=== PATIENT | female | born 1965 | race American Indian/Alaskan Native ===

== ENCOUNTER 2020-04-14 02:32 | Observation (INO) ==
[2020-04-14] MEDS ORDERED: IBUPROFEN 600 MG TABLET PO PRN ×2 (02:59→15:56)
[2020-04-14] MEDS ORDERED: ONDANSETRON 4 MG/2 ML VIAL IV PRN ×3 (02:59→15:56)
[2020-04-14] MEDS ORDERED: ACETAMINOPHEN 325 MG TABLET PO PRN ×2 (02:59→15:56)
[2020-04-14] MEDS ORDERED: morphine 15 MG TABLET PO PRN (02:59)
--- NOTE | 2020-04-14 03:06 | Emergency Department Note ---
Abdominal Pain HPI General Chief Complaint: Abdominal Pain Stated Complaint: right lower abd. pain known appy Time Seen by Provider: 04/14/20 02:59 Source: EMS Mode of arrival: EMS History of Present Illness HPI Narrative: Narrative: Patient presented to the emergency department as a transfer from [facility] emergency department for appendicitis. They already spoke with Dr. Diaz the physician who wanted to be an ER to ER transfer but excepted the patient. Patient said that she started having right lower quadrant abdominal pain she has no nausea no vomiting. They did a CAT scan which did show a appendicitis. Patient already been started on Rocephin and Flagyl which were given prior to arrival. Patient has been n.p.o. since late last night. She is comfortable at this time just has mild discomfort 4 out of 10 pain in the right lower quadrant otherwise no other pain no nausea or vomiting. Related Data Home Medications Medication Instructions Recorded Confirmed aspirin 81 mg PO DAILY 04/14/20 04/14/20 irmfuhdxemep-ioo-[id number]-FA-vit K 1 tab PO DAILY 04/14/20 04/14/20 [Adults Multivitamin] Allergies Allergy/AdvReac Type Severity Reaction Status Date / Time codeine AdvReac Intermediate Itching Verified 04/14/20 02:42 Review of Systems ROS ROS Narrative: Narrative: All systems ED: reviewed and negative except as stated. [facility] Narrative Patient History Narrative: Narrative: Medical/Surgical/Family History All Active Problems (Updated 04/14/20 @ 03:06 by Guanaco Wyatt DO) Acute appendicitis (Acute) Social History Smoking Status: Never smoker Exam Narrative Narrative: Narrative: Vital signs noted General: Awake. Alert. No distress. Skin: Warm. Dry. No rash. HEENT: NCAT. PERRL. EOMI. No conjunctivitis. No nystagmus. No pharyngitis. Membranes moist. No otitis. No rhinitis. Neck: No PTP. Good ROM. No meningeal signs. No stridor. No thyromegaly. No JVD. Cardiovascular: RRR. No murmur. No rubs. No gallops. Respiratory: No respiratory distress. Breath sounds equal. Lungs clear. Gastrointestinal: Abdomen soft. Mild tenderness to right lower quadrant. No distention. Normal bowel sounds. No palpable organomegaly or masses. Back: No deformity. No CVAT. Musculoskeletal: No tenderness. No swelling. No erythema. No edema. Good peripheral pulses x 4 Lymphatic: No palpable adenopathy. Neurological: No focal neurological deficits observed. Course Vital Signs Vital signs: Vital Signs Temperature 100.5 F H 04/14/20 02:33 Pulse Rate 96 H 04/14/20 02:33 Respiratory Rate 17 04/14/20 02:33 Pulse Oximetry (%) 96 04/14/20 02:33 Temperature 100.5 F H 04/14/20 02:33 Pulse Rate 96 H 04/14/20 02:33 Respiratory Rate 17 04/14/20 02:33 Pulse Oximetry (%) 96 04/14/20 02:33 MDM MDM Narrative Medical decision making narrative: Narrative: Patient presented with appendicitis. I did review the CAT scan and the imaging patient already got images. As well as already received antibiotics. I did start IV fluids on her just for rehydration. She said her mouth feels dry she is n.p.o. status. I did place orders to get admitted to [facility]. I did speak with Dr. Diaz and he agrees with this plan he states he no admit to his service and will see the patient in the morning. Patient is stable at this time she is okay. There is no signs of an acute abdomen I think patient is stable and able to get seen and have surgery in the morning. She continues to be n.p.o. status Discharge Plan Patient/Caregiver Discharge Instructions Pt seen by BOND CLERK/PA only: No Clinical Impression: Acute appendicitis Patient Disposition: Xfer As Outpt/Obs ([facility]) Condition: Good Prescriptions: No Action aspirin 81 mg Tablet,Chewable 81 mg PO DAILY RF: 0 Adults Multivitamin 18 mg iron-400 mcg-25 mcg Tablet 1 tab PO DAILY RF: 0
[2020-04-14] MEDS: 0.9 % SODIUM CHLORIDE 1,000 ML IV SCH ×3 (04:38→16:00)
[2020-04-14] MEDS: 0.9 % SODIUM CHLORIDE 10 ML SYRINGE IV SCH ×3 (04:39→21:46)
[2020-04-14] MEDS ORDERED: DOCUSATE SODIUM 100 MG CAPSULE PO SCH (09:00)
[2020-04-14] MEDS ORDERED: ACETAMINOPHEN 1,000 MG/100 ML BOTTLE IV PRN ×2 (12:52→15:56)
[2020-04-14] MEDS ORDERED: SODIUM CHLORIDE NASAL 1 SPRAY BOTTLE NAS PRN ×2 (13:03→15:56)
--- NOTE | 2020-04-14 13:18 | General Surg History&Physical ---
HPI History of Present Illness Patient information: Note initiated : 04/14/20 at 1:02 pm Service Date, if different from initiated Date: [] Patient: Sofia Nolan a 54 y/o F admitted on 04/14/20 for right lower abd. pain known appy. Chief Complaint: [] Chief complaint: acute abdominal pain History of present illness: Ms. Nolan is a 54 year old F admitted after transfer from [facility] for acute appendicitis. She states that she developed a mild pain in her lower abdomen and right lower quadrant about 2 PM yesterday. It became progressively severe and she had nausea but no vomiting. The pain increases in her pubis. She did not have any urinary symptoms. She was finally seen in the emergency room at [facility] about 10:30 PM. She was evaluated and found to have acute appendicitis with enlarged appendix with periappendiceal tissue edema low-grade fever and leukocytosis. She was transferred here reportedly because [facility] did not have a bed for admission. The patient states that she started having symptoms of nasopharyngeal congestion loss of taste and loss of smell around 18 March. She did not have any fever or chills. These symptoms increased and she was finally tested for COVID 19 on 27 March and the test was positive. She states that she has continued to have headache, sinus congestion, increasing difficulty breathing even up until yesterday. She self quarantine for a week and then was told that she could return to work with a mass. She was never tested. She told the staff at [facility] last evening that she had beeN COVID positive.she was evaluated her for MRSA but did not have a repeat COVID test. When tested here her rapid Covid remains positive. Constitutional Constitutional: Present chills, fever(s), headache(s), night sweats and weakness EENT Eyes: Absent change in vision Ears: Absent decreased hearing, ear pain and tinnitus Nose, mouth and throat: Present dizziness, facial pain, headache(s), nasal discharge, nasal obstruction, sinus pain and sore throat Cardiovascular Cardiovascular: Present dyspnea on exertion; Absent chest pain and chest pain with activity Respiratory Respiratory: Present dyspnea on exertion and chest congestion; Absent cough Gastrointestinal Gastrointestinal: Present abdominal pain, bloating and nausea; Absent vomiting Genitourinary Genitourinary: Absent difficulty voiding, dysuria, urinary frequency and urinary urgency Musculoskeletal Musculoskeletal: Absent arthralgias, back pain and muscle weakness Neurological Neurological: Present headache(s); Absent abnormal gait, abnormal hearing, confusion and dizziness Psychiatric Psychiatric: Absent anxiety, behavioral changes and depression Endocrine Endocrine: Absent fatigue Hematologic/Lymphatic Hematologic/Lymphatic: Absent easy bleeding, easy bruising and lymphadenopathy Allergic/Immunologic Allergic/Immunologic: Absent tongue swelling, throat swelling, uticaria, whe ezing and lip swelling PFSH PFSH All Active Problems H/O closure of congenital ventricular 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 transcatheter technique (Acute) COVID-19 (Acute) Acute appendicitis (Acute) Social History smoking status: Never smoker MEDS/ALLERGIES Home Medications and Allergies Home Medications Medication Instructions Recorded Confirmed Type aspirin 81 mg PO DAILY 04/14/20 04/14/20 History lavufzdzleiq-mqy-ypgj-FA-vit K 1 tab PO DAILY 04/14/20 04/14/20 History [Adults Multivitamin] Allergies Allergy/AdvReac Type Severity Reaction Status Date / Time codeine AdvReac Intermediate Itching Verified 04/14/20 02:42 Physical Examination Vital Signs Vital signs: Temp Pulse Resp BP Pulse Ox 98.0 F 68 16 101/51 96 04/14/20 07:32 04/14/20 07:32 04/14/20 07:32 04/14/20 07:32 04/14/20 07:32 General physical appearance General physical exam: well developed, well nourished, no distress and moderate pain Eyes Eye exam: PERRL ENT ENT exam: normal mucosa, no hearing loss and other (nasal congestion) Head Head exam IM: Present atraumatic, normal inspection and normocephalic Neck Neck exam: no bruits, trachea midline, no lymphadenopathy and no venous distension Cardiovascular Cardiovascular exam IM: Present normal rate and rhythm, RRR, +S1 and +S2; Absent JVD Respiratory Respiratory exam: normal expansion, normal respiratory effort, clear to auscultation and other Abdomen Abdomen: Present soft, non tender, tender, bowel sounds and guarding (right lower quadrant) Integumentary Integumentary: Present no rash, no growths, no abnormal pigmentation and other Neurologic Neurologic: Present normal coordination and normal sensation Musculoskeletal Musculoskeletal: Present normal gait and normal posture Psychiatric Psychiatric: Present oriented to time, oriented to person, oriented to place, speech is normal and memory intact Results Labs Labs: Abnormal lab results 04/14/20 Range/Units 05:10 SARS-CoV-2 (PCR) Positive A (Negative) All other labs normal. A/P Assessment and plan (1) Acute appendicitis: Status: Acute Qualifiers: Acute appendicitis type: unspecified acute appendicitis type Qualified Code(s): K35.80 - Unspecified acute appendicitis (2) COVID-19: Status: Acute (3) H/O closure of congenital ventricular 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 transcatheter technique: Status: Acute Narrative A/P Narrative: patient is counseled for laparoscopic appendectomy later today Time Spent With Patient Time: Total time spent is greater than 50% in coordination of care (as documented) at patient's floor/unit and/or counseling patient:
[2020-04-14] MEDS ORDERED: SCOPOLAMINE 1 PATCH PATCH TOPICAL SCH (13:45)
[2020-04-14] MEDS: LEVOFLOXACIN 750 MG/150 ML BAG IV SCH ×3 (14:00→16:12)
[2020-04-14] MEDS ORDERED: SUGAMMADEX SODIUM 200 MG/2 ML VIAL IV ONE (14:10)
[2020-04-14] MEDS ORDERED: PROPOFOL 200 MG/20 ML VIAL IV ONE (14:10)
[2020-04-14] MEDS ORDERED: ROCURONIUM 10 MG/ML ML IV ONE (14:10)
[2020-04-14] MEDS ORDERED: fentaNYL 250 MCG/5 ML VIAL IV ONE (14:10)
[2020-04-14] MEDS ORDERED: DEXAMETHASONE 10 MG/ML VIAL ONE (14:10)
[2020-04-14] MEDS ORDERED: ePHEDrine 50 MG/ML AMPUL IV ONE (14:10)
[2020-04-14] MEDS ORDERED: MIDAZOLAM 5 MG/5 ML VIAL ONE (14:10)
[2020-04-14] MEDS ORDERED: LIDOCAINE HCL/PF 100 MG/5 ML SYRINGE IV ONE (14:10)
[2020-04-14] MEDS ORDERED: ONDANSETRON 4 MG/2 ML VIAL ONE (14:10)
[2020-04-14] MEDS ORDERED: NALOXONE HCL 0.4 MG/ML VIAL IV PRN (14:45)
[2020-04-14] MEDS ORDERED: MEPERIDINE 25 MG/ML SYRINGE IV PRN (14:45)
[2020-04-14] MEDS ORDERED: fentaNYL 100 MCG/2 ML VIAL IV PRN (14:45)
[2020-04-14] MEDS ORDERED: diphenhydrAMINE 50 MG/ML VIAL IV PRN (14:45)
[2020-04-14] MEDS ORDERED: LACTATED RINGERS 1,000 ML IV SCH (14:45)
[2020-04-14] MEDS ORDERED: KETOROLAC 30 MG/ML VIAL IV PRN (14:45)
[2020-04-14] MEDS ORDERED: IPRATROPIUM/ALBUTEROL 3 ML AMPUL.NEB NEB PRN (14:45)
[2020-04-14] MEDS ORDERED: LACTATED RINGERS 250 ML IV PRN (14:45)
[2020-04-14] MEDS ORDERED: PROMETHAZINE 25 MG/ML VIAL IV PRN (14:45)
[2020-04-14] MEDS ORDERED: FLUMAZENIL 0.1 MG/ML ML IV PRN (14:45)
--- NOTE | 2020-04-14 14:52 | Brief Operative Note ---
Brief Operative Note Date of procedure: 04/14/20 Pre-op diagnosis: acute appendicitis Post-op diagnosis: other Grafts/Implants: No Anesthesia: GETA Findings: acute suppurative appendicitis Complications: none Surgeon: Rolando Diaz Estimated blood loss (cc): 5 Specimens Removed/Pathology: other (appendix) Condition: stable Disposition: PACU
[2020-04-14] MEDS ORDERED: HYDROmorphone 1 MG/ML SYRINGE IV PRN (15:56)
[2020-04-14] MEDS ORDERED: LEVOFLOXACIN 750 MG/150 ML BAG IV ONE (16:00)
[2020-04-14] MEDS: DOCUSATE SODIUM 100 MG CAPSULE PO SCH (20:19)
[2020-04-14] MEDS ORDERED: SENNOSIDES 1 TABLET PO SCH ×2 (21:00)
[2020-04-15] MEDS: 0.9 % SODIUM CHLORIDE 1,000 ML IV SCH ×2 (00:12→08:57)
[2020-04-15] MEDS: 0.9 % SODIUM CHLORIDE 10 ML SYRINGE IV SCH ×2 (05:24→12:58)
[2020-04-15 06:43] LABS: Basophils # (Auto) 0.01 K/mcL (0.00-0.20); Basophils % (Auto) 0.1 % (0.0-2.0); Eosinophils # (Auto) 0 K/mcL (0.00-0.70); Eosinophils % (Auto) 0 % (0.0-7.0); Hemoglobin 10.1 g/dL (12.0-15.0); Lymphocytes # (Auto) 0.87 K/mcL (1.50-4.80); Mean Cell Volume 92.8 fL (80.0-100.0); Mean Corpuscular HGB Conc 31.6 g/dL (31.0-36.0); Mean Platelet Volume 10.2 fL (7.4-10.4); Monocytes # (Auto) 0.38 K/mcL (0.10-0.90); Monocytes % (Auto) 3.5 % (1.0-12.0); Neutrophils % (Auto) 88.4 % (38.0-78.0); Platelet Count 205 K/mcL (140-440); RBC 3.45 M/mcL (4.00-5.20); Red Cell Distribution Width 13.4 % (11.5-14.5); WBC 10.9 K/mcL (4.5-11.0)
[2020-04-15] MEDS: DOCUSATE SODIUM 100 MG CAPSULE PO SCH (08:57)
[2020-04-15] MEDS: LEVOFLOXACIN 750 MG/150 ML BAG IV SCH (09:05)
--- NOTE | 2020-04-15 13:09 | Discharge Summary ---
Discharge Provider Provider Patient information: Note initiated : 04/15/20 at 1:03 pm Service Date, if different from initiated Date: [] Patient: Sofia Nolan 54 y/o F admitted on 04/14/20 for right lower abd. pain known appy. Chief Complaint: [] Date of admission: 04/14/20 04:23 Discharge date: 04/15/20 Admitting clinician: Rolando Diaz Consults: 04/14/20 04:38 Consult to Physician [CONS] Routine Comment: Consulting Provider: Rolando Diaz Reason For Exam: Physician to Consult Attending physician on discharge: Rolando Diaz Discharging clinician: Rolando Diaz COURSE Hospital Course Hospital course: 54-year-old female with history of acute abdominal pain. She was transferred from [facility] with acute appendicitis. She was monitored and taken to or on yesterday for an uneventful laparoscopic appendectomy. She has done well except for mild incisional pain and is ready for discharge. Patient is COVID positive. If necessary precautions were taken. She has done well except for complaint of nasal pharyngeal congestion. She she had headache but that was treated with Fioricet and is felt to be related to caffeine withdrawal. Discharge diagnosis: acute appendicitis Secondary discharge diagnosis: COVID 19 positive status Reason for admission: acute appendicitis Procedures: laparoscopic appendectomy Pertinent studies/significant findings: none Complications: none Time Spent with Patient Time attestation: Total time spent providing and/or coordinating discharge services: Physical Examination Vital Signs Vital signs: Temp Pulse Resp BP Pulse Ox 98.5 F 62 18 102/53 99 04/15/20 12:00 04/15/20 12:00 04/15/20 12:00 04/15/20 12:00 04/15/20 12:00 General physical appearance General physical exam: well developed, well nourished, no distress and moderate pain Eyes Eye exam: PERRL and normal ocular movement ENT ENT exam: other (nasopharyngeal congestion) Head Head exam IM: Present atraumatic, normal inspection and normocephalic Neck Neck exam: no masses, no bruits, trachea midline and no lymphadenopathy Cardiovascular Cardiovascular exam IM: Present normal rate and rhythm, RRR, +S1 and +S2; Absent JVD Respiratory Respiratory exam: normal expansion, normal respiratory effort and clear to auscultation Abdomen Abdomen: Present soft, tender (mild tenderness around the port sites), bowel sounds (normal bowel sounds) and surgical scars (all port sites were unremarkable) Integumentary Integumentary: Present no rash, no growths and no abnormal pigmentation Neurologic Neurologic: Present normal coordination and normal sensation Musculoskeletal Musculoskeletal: Present normal gait and normal posture Psychiatric Psychiatric: Present oriented to time, oriented to person, oriented to place, speech is normal and memory intact Discharge Plan Patient/Caregiver Discharge Instructions Activity: increase activity as tolerated and resume usual activities as tolerated Diet: Regular Diet Prescriptions: New oxycodone 5 mg tablet 5 mg PO Q6H PRN (Reason: pain) Qty: 30 RF: 0 No Action aspirin 81 mg Tablet,Chewable 81 mg PO DAILY RF: 0 Adults Multivitamin 18 mg iron-400 mcg-25 mcg Tablet 1 tab PO DAILY RF: 0 Follow Up Plan Follow up with: Rolando Diaz MD [Physician] - Patient Disposition: Home, Self-Care Health Concerns: Prognosis: Good Rehab Potential: Good I certify that the patient requires SNF services: No Overall status at discharge: patient is progressing back to baseline Discharge Orders: Discharge Order (Routine); Ordered 04/15/20 Ordered By: Rolando Diaz Pending Pending Pending: Resuscitation Status Full Code Diet Full Liquid Diet Start Sun Apr 14 1556 Docusate Sodium (Colace) 100 mg PO BID [facility] Last Admin: 04/15/20 08:57 Dose: 100 mg Documented by: Admin: 04/14/20 20:19 Dose: 100 mg Documented by: Cosigned by: JHONY Hydromorphone HCl (Dilaudid) 1 mg IV Q2HP PRN; Protocol PRN Reason: Per Pain Protocol Last Admin: 04/14/20 18:11 Dose: 1 mg Documented by: JAYA Sodium Chloride (Sodium Chloride 0.9%) 1,000 mls @ 125 mls/hr IV .Q8H [facility] Last Admin: 04/15/20 08:57 Dose: 125 mls/hr Documented by: Infusion: 04/15/20 08:12 Dose: 125 mls/hr Documented by: Admin: 04/15/20 00:12 Dose: 125 mls/hr Documented by: Cosigned by: JHONY Infusion: 04/15/20 00:00 Dose: 125 mls/hr Documented by: Cosigned by: JHONY Admin: 04/14/20 16:00 Dose: 125 mls/hr Documented by: JAYA Acetaminophen (Ofirmev) 1,000 mg in 100 mls @ 200 mls/hr IV Q6HP PRN; Protocol PRN Reason: pain Last Infusion: 04/15/20 05:59 Dose: 200 mls/hr Documented by: Cosigned by: JHONY Admin: 04/15/20 05:12 Dose: 200 mls/hr Documented by: Cosigned by: JHONY Levofloxacin (Levaquin) 750 mg in 150 mls @ 100 mls/hr IV DAILY BIJAN; Protocol Last Infusion: 04/15/20 10:35 Dose: 0 mls/hr Documented by: Admin: 04/15/20 09:05 Dose: 100 mls/hr Documented by: Infusion: 04/14/20 15:30 Dose: 100 mls/hr Documented by: Admin: 04/14/20 14:00 Dose: 100 mls/hr Documented by: MALLORY Ondansetron HCl (Zofran) 4 mg IV Q6HP PRN PRN Reason: Nausea And Vomiting Last Admin: 04/14/20 18:12 Dose: 4 mg Documented by: JAYA Senna (Senokot) 2 tab PO HS BIJAN Last Admin: 04/14/20 20:20 Dose: 2 tab Documented by: Cosigned by: JHONY Sodium Chloride (Saline Flush) 10 ml IV Q8 BIJAN Last Admin: 04/15/20 12:58 Dose: Not Given Documented by: Admin: 04/15/20 05:24 Dose: Not Given Documented by: Admin: 04/14/20 21:46 Dose: Not Given Documented by: Sodium Chloride ([place] Nasal) 2 spray BOOKER DAILYP PRN PRN Reason: Congestion Last Admin: 04/15/20 08:59 Dose: 2 spray Documented by: JAYA Shift Summary 04/15/20 04:40 Shift Summary by Jerilyn Ross Patient was transferred from [facility] 04/14 for appendectomy. Laparoscopic Appendectomy performed, 3 incisions to abdomen CDI. Patient has reported mild pain this shift, but didn't require any medication. VSS on RA. Up Ad jeri in room. Patient remains in isolation due to being Covid +. IV in RFA with NS @ 125mls/hr. Patient has been voiding adequately. Possible discharge today. Bedside report to follow. Initialized on 04/15/20 04:40 - END OF NOTE
--- NOTE | 2020-04-16 13:16 | Surgical Pathology Report ---
Histology Microscopic Diagnosis Specimen A- APPENDIX, APPENDECTOMY: -- ACUTE APPENDICITIS WITH SEROSITIS. (DMT:sln) Clinical History Right lower quadrant abdominal pain. Procedural Impression Appendicitis. Gross Description Received in formalin labeled appendix, is a prince-macario appendix that is 5.1 cm in length by up to 1.1 cm in diameter with up to 2 cm of attached macario fat. The resection margin is stapled. This is inked black. Cut surfaces are pink-macario. Grossly there are no areas of perforation identified. Chaser Tar sections submitted in one cassette. (SCB:sln) Electronically Signed Romeo Petit MD, FCAP Electronically Signed 04/16/2020 1:16 PM
--- NOTE | 2020-04-16 13:33 | Operative Note ---
DATE OF OPERATION: 04/14/2020 PREOPERATIVE DIAGNOSIS: Acute appendicitis. POSTOPERATIVE DIAGNOSIS: Acute appendicitis. PROCEDURE:laparoscopic appendectomy SURGEON: Rolando Diaz M.D. FINDINGS: Acute suppurative appendicitis. DESCRIPTION OF PROCEDURE: Under general anesthesia, the patient's abdomen was prepped and draped in a sterile field. Time-out procedure was done. A supraumbilical incision was made and Veress needle was inserted uneventfully. Abdomen was insufflated with 3 liters of CO2. A 12 mm port was placed. Laparoscope was placed. A supraumbilical midline incision was made and a 5 mm port was placed. A 12 mm port was placed in the left lower quadrant. The patient was placed in deep Trendelenburg position and rotated to the left. The appendix was found medial to the cecum. It was grasped and positioned. The mesoappendix was dissected and transected using Endo-CORNELL stapler. The base of the appendix was transected using Endo-CORNELL stapler. The appendix was placed in an EndoCatch device and retrieved. Irrigation was carried out. There was no significant bleeding. The pelvis was irrigated and suctioned. CO2 was allowed to escape from the abdomen and the ports were removed. The fascia at the umbilicus was closed with 0 Vicryl. Skin incisions were closed with cee. The patient tolerated the procedure well. Tegaderm dressings were placed. The patient was awakened and transferred to a bed and taken to the postanesthetic care unit in stable, satisfactory condition. LCS:basilia Job ID: [id number] Doc ID: [id number] Rolando Diaz M.D. MTDD
== END 2020-04-15 14:28 | disposition home or self-care (01) ==
LOC: MEDSUR 02:32 → ED 02:32
PROVIDERS: ADMIT Family Medicine Adult Medicine; ATTEND Family Medicine Adult Medicine